=== PATIENT | female | born 1950 | race Caucasian/White ===

== ENCOUNTER → 2016-12-20 | Outpatient (CLI) | payer BC ==
[~2016-12-20] MED LIST: AMBI5TAB PO; CALC600T21 PO; CALC600T7 PO; ESTR62CR PV; FISH120012 PO; GABA-283 PO; GLUC15002 PO; LIPI1TAB2 PO; METF1000 PO; MOBI15TA PO; PERCOCET PO; PROT1TAB2 PO; ROBA500T PO; SUPECAP24 PO; VALI2TAB PO; VESI5TAB PO; VITA10006 PO; ZETI10TA2 PO; ZOLO50TA PO
[2016-12-20 12:55] LABS: ALBUMIN 3.9 GM/DL (3.2-5.2); ALBUMIN/GLOBULIN RATIO 1.34 (1.00-1.93); ALKALINE PHOSPHATASE 90 U/L (45-117); ALT/SGPT 36 U/L (12-78); ANION GAP 7 MEQ/L (8-16); AST/SGOT 24 U/L (15-37); BILIRUBIN,TOTAL 0.4 MG/DL (0.2-1.0); BLOOD UREA NITROGEN 19 MG/DL (7-18); CALCIUM LEVEL 9.2 MG/DL (8.8-10.2); CARBON DIOXIDE LEVEL 30 MEQ/L (21-32); CHLORIDE LEVEL 106 MEQ/L (98-107); CHOLESTEROL LEVEL 131 MG/DL (<200); GLOMERULAR FILTRATION RATE > 60.0 (>45); GLUCOSE, FASTING 122 MG/DL (80-110); POTASSIUM SERUM 4.5 MEQ/L (3.5-5.1); SODIUM LEVEL 143 MEQ/L (136-145); TOTAL PROTEIN 6.8 GM/DL (6.4-8.2); TRIGLYCERIDES LEVEL 95 MG/DL (<150)
== END ==
LOC: M WUC 08:32
DX: E11.9 Type 2 diabetes mellitus without complications (principal)

== ENCOUNTER → 2017-01-15 | Outpatient (CLI) | payer OTHER ==
--- NOTE | 2017-02-08 00:37 | ECWPNPC ---
PATIENT NAME: TAMI WHITMORE : 1950 GENDER: FEMALE VISIT DATE: 01/15/2017 DISCHARGE DATE: 01/15/17 1045 VISIT LOCKED DATE TIME: PHYSICIAN: JESSI FREEMAN RESOURCE: JESSI FREEMAN REASON FOR APPOINTMENT 1. BACK HISTORY OF PRESENT ILLNESS HISTORY OF PRESENT ILLNESS: PAIN THE PATIENT DESCRIBES THE PAIN... FALL RISK SCREENING: SCREENING :NO FALLS IN THE PAST YEAR TODAY'S VISIT: NOTES: FOLLOWUP FOR LOW BACK PAIN RATES PAIN TODAY 0/10. HAS BEEN HAVING DISCOMFORT IN BACK FROM COUGHING, BUT OVERALL HAS HAD GOOD CONTROL OF BACK PAIN. UNEVEN SURFACES STILL CAUSE LOW BACK PAIN WITH NO RADIATION. USES IBUPROFEN OR TYLENOL NEEDED AND REAT. . CURRENT MEDICATIONS TAKING ASCORBIC ACID 1000 MG TABLET 1 TABLET ORALLY ONCE A DAY TAKING SUPER B COMPLEX TABLET 1 TAB(S) ORALLY DAILY TAKING CALCIUM + D 600-200 MG-UNIT TABLET 1 TABLET WITH FOOD ORALLY DAILY TAKING GLUCOSAMINE 1500 MG CAPSULE 2 CAPSULE WITH A MEAL ORALLY ONCE A DAY TAKING METFORMIN HCL 1000 MG TABLET 1 TABLET WITH MEALS ORALLY DAILY TAKING VESICARE 5 MG TABLET 1 TABLET ORALLY ONCE A DAY TAKING ASPIR-81 81 MG TABLET DELAYED RELEASE 1 TABLET ORALLY ONCE A DAY TAKING LEVOTHYROXINE SODIUM 25 MCG TABLET 1 TABLET ON AN EMPTY STOMACH IN THE MORNING ORALLY ONCE A DAY TAKING ATORVASTATIN CALCIUM 40 MG TABLET 1 TABLET ORALLY ONCE A DAY TAKING ZETIA 10 MG TABLET 1 TABLET ORALLY ONCE A DAY TAKING PROTONIX 40 MG TABLET DELAYED RELEASE 1 TABLET ORALLY ONCE A DAY TAKING ZOLOFT 50 MG TABLET 1 TABLET ORALLY ONCE A DAY NOT-TAKING FEXOFENADINE HCL 180 MG TABLET 1 TABLET ORALLY ONCE A DAY NEEDED NOT-TAKING PERCOCET 5-325 MG TABLET 1 TABLET NEEDED ORALLY ONE TABLET ON ARRIVAL TO CLINIC FOR PROCEDURE MDD=1 NOT-TAKING VALIUM 5 MG TABLET 1 TABLET NEEDED ORALLY TAKE 1 TABLET ON ARRIVAL TO CLINIC FOR PROCEDURE MDD=1 NOT-TAKING CALCIUM CARBONATE 600 MG TABLET 1 TABLET ORALLY DAILY NOT-TAKING PREMARIN 0.625 MG TABLET 1 TABLET ORALLY DAILY FOR THREE WEEKS, 1 WEEK OFF NOT-TAKING VALIUM 2.5 MG TABLET 1 TABLET NEEDED ORALLY TID NOT-TAKING MELOXICAM 15 MG TABLET 1 TABLET ORALLY ONCE A DAY NOT-TAKING ROBAXIN 500 MG TABLET 1 TAB(S) ORALLY EVERY 4 HRS NOT-TAKING PERCOCET 5-325 MG TABLET 1 TABLET NEEDED ORALLY EVERY 6 HRS NOT-TAKING AMBIEN 5 MG TABLET 1 TABLET AT BEDTIME ORALLY ONCE A DAY MEDICATION LIST REVIEWED AND RECONCILED WITH THE PATIENT PAST MEDICAL HISTORY HYPOTHYROIDISM DIABETES SKIN CANCER FX LEFT WRIST WEARS CPAP AT NIGHT ALLERGIES NICKEL: RASH REVIEW OF SYSTEMS CONSTITUTIONAL: ANY CHANGE IN YOUR MEDICAL CONDITION? NO . CHILLS NO . FEVER NO . INFECTION: DO YOU HAVE NEW INFECTIONS? NO . DO YOU HAVE HISTORY OF MRSA? NO . MUSCULOSKELETAL: ANY NEW PATTERNS OF PAIN OR NUMBNESS? NO . GASTROENTEROLOGY: ANY NEW CHANGE IN BOWEL CONTROL? NO . GENITOURINARY: ANY NEW CHANGE IN BLADDER CONTROL? NO - INTERMITTANT STRESS INCONTINENCE . IS THERE A CHANCE YOU COULD BE ? NO . HEMATOLOGY/LYMPH: DO YOU TAKE ANY BLOOD THINNERS? (FOR EXAMPLE- COUMADIN, PLAVIX, AGGRENOX, PLATEL, PRADAXA, OR XARELTO) NO . WHEN WAS YOUR LAST DOSE? DATE: TIME: . NEUROLOGY: HAVE YOU FALLEN IN THE PAST 6 MONTHS? NO . ANY NEW EXTREMITY NUMBNESS OR WEAKNESS? NO . CARDIOLOGY: DO YOU HAVE A PACEMAKER OR DEFIBRILLATOR? NO . CHEST PAIN PATIENT DENIES. ECHOCARDIOGRAM DONE LAST YEAR WITH NO ISSUES . RESPIRATORY: HAVE YOU BEEN SICK IN THE PAST WEEK? YES, COLD AND COUGH . FEVER NO . FLU LIKE SYMPTOMS? NO . COUGH YES . INTEGUMENTARY: DO YOU HAVE ANY RASHES OR OPEN SORES? NO . ALLERGIC/IMMUNO: ARE YOU ALLERGIC TO SHELLFISH OR IV DYE? NO . ANY NEW ALLERGIES? NO . PSYCHIATRIC: DO YOU HAVE THOUGHTS OF HURTING YOURSELF OR SOMEONE ELSE? NO . ARE YOU ABUSED, NEGLECTED, OR IN AN UNSAFE ENVIRONMENT? NO . ENDOCRINOLOGY: ARE YOU DIABETIC? YES . OTHER: DO YOU NEED ANY PRESCRIPTIONS? NO . IF YES, PLEASE LIST: ____ . ANY NEW PROBLEMS WITH YOUR MEDICATIONS? NO . WHEN DID YOU LAST EAT? ____ . WHEN DID YOU LAST DRINK? ____ . WHAT DID YOU LAST DRINK? ____ . NAME OF PERSON DRIVING YOU HOME? ____ . DO YOU HAVE ANY OTHER QUESTIONS OR CONCERNS NO . REVIEWED BY: PROVIDER: JESSI BARGER . VITAL SIGNS WT 192.0 LBS, HT 66 IN, BMI 30.99 INDEX, BP 121/68 MM HG, HR 81 /MIN, RR 16 /MIN, TEMP 98.2 F, OXYGEN SAT % 96%, NA INITIALS AW 1012, REVIEWED BY: NL. EXAMINATION GENERAL EXAMINATION: LUNGS:CLEAR TO AUSCULTATION BILATERALLY. HEART:HEART RATE REGULAR, NO, CAROTID BRUIT. MUSCULOSKELETAL:RISES EASLY TO STANDING POSITION. MINIMAL TENDERNESS TO PALPATION OVER LUMBAR SPINOUS PROCESSES OR SACRAL ILIAC JOINTS. GAIT NONANTALGIC. ASSESSMENTS INTERVERTEBRAL DISC DISORDER WITH RADICULOPATHY OF LUMBAR REGION - M51.16 (PRIMARY) RADICULOPATHY OF LUMBAR REGION - M54.16 TREATMENT INTERVERTEBRAL DISC DISORDER WITH RADICULOPATHY OF LUMBAR REGION NOTES: CONTINUE WALKING, EXERCISES AND STRETCHES. PROCEDURES PN WORKMANS' COMP OPINION IN YOUR OPINION, WAS THE INCIDENT THAT THE PATIENT DESCRIBED THE COMPETENT MEDICAL CAUSE OF THIS INJURY/ILLNESS? YES ARE THE PATIENT'S COMPLAINTS CONSISTENT WITH HIS/HER HISTORY OF THE INJURY/ILLNESS? YES IS THE PATIENT'S HISTORY OF THE INJURY/ILLNESS CONSISTENT WITH YOUR OBJECTIVE FINDING? YES WHAT IS THE PERCENTAGE OF TEMPORARY IMPAIRMENT? MODERATE TO MARKED = 66.7% IS THE PATIENT WORKING? NO RETIRED DOCTOR ON SITE: CHIDI BYRD MD PROCEDURE CODES FA211 ESTABILISHED PATIENT [facility] CHARGE DISPOSITION & COMMUNICATION FOLLOW UP [address] KIRKPATRICK (REASON: WC BACK) ELECTRONICALLY SIGNED BY KHUSHBU AGUILAR ON 02/07/2017 AT 12:14 PM EDT DISCLAIMER : THIS IS A VISIT SUMMARY EXTRACTED FROM THE [employer] CHART. IT IS NOT A COPY OF THE [employer] PROGRESS NOTE. SARA
== END ==
LOC: M PAIN 10:00
PROVIDERS: ATTEND Nurse Practitioner Family
DX: G89.29 Other chronic pain (principal); M54.16 Radiculopathy, lumbar region; E11.9 Type 2 diabetes mellitus without complications; E03.9 Hypothyroidism, unspecified; Z85.828 Personal history of other malignant neoplasm of skin; Z79.899 Other long term (current) drug therapy; Z79.82 Long term (current) use of aspirin; Z79.84 Long term (current) use of oral hypoglycemic drugs; L23.0 Allergic contact dermatitis due to metals

== ENCOUNTER → 2017-03-30 | Outpatient (CLI) | payer BC ==
[~2017-03-30] MED LIST changes: -CALC600T21 PO; +CALC600T60 PO; -METF1000 PO; +METF10004 PO; -VESI5TAB PO; +VESI5TAB2 PO; -ZETI10TA2 PO; +ZETI10TA30 PO
--- NOTE | 2017-03-31 07:31 | REP ---
LEFT FOOT, FOUR VIEWS: HISTORY: Sprain. There is no acute fracture or dislocation. There is narrowing of the first metatarsophalangeal joint space. IMPRESSION: There is no acute fracture or dislocation. Signed by Parth Blackwood MD 03/31/2017 07:47 A
== END ==
LOC: M WUC 14:51
PROVIDERS: ATTEND Physician Assistant
DX: S93.602A Unspecified sprain of left foot, initial encounter (principal); X58.XXXA Exposure to other specified factors, initial encounter; Y92.89 Other specified places as the place of occurrence of the external cause; Y93.89 Activity, other specified; Y99.8 Other external cause status

== ENCOUNTER → 2017-04-03 | Outpatient (CLI) | payer BC, OTHER ==
--- NOTE | 2017-04-03 15:16 | REPMRS ---
Patient History The patient states she had a clinical breast exam in 03/02 Patient is postmenopausal, has history of other cervical cancer at age 29, and had first child at age 32. Family history of prostate cancer in father at age 50 or over and colorectal cancer in mother at age 50 or over. Digital Woman Screen Mammo: April 03, 2017 - Exam #: [id number] Bilateral CC and MLO view(s) were taken. Technologist: Nicole Grider, Technologist Prior study comparison: May 09, 2016, digital woman screen mammo performed at [facility]. 2013, digital bilateral screening mammo, performed at [facility]. FINDINGS: There are scattered fibroglandular densities. There has been no change in the appearance of the mammogram from the prior studies. There is a mild amount of scattered fibroglandular density which is fairly symmetric. There is no interval development of dominant mass, architectural distortion, or clustered microcalcification suggestive of malignancy. ASSESSMENT: BI-RADS/ACR category 1 mammogram. Negative. Recommendation Routine screening mammogram in 1 year (for women over age 40). This mammogram was interpreted with the aid of an FDA-approved computer-aided dectection system. Electronically Signed By: Dayo Christie MD 04/03/17 0453
== END ==
LOC: M WHC 14:24
PROVIDERS: ATTEND Obstetrics & Gynecology
DX: Z12.31 Encounter for screening mammogram for malignant neoplasm of breast (principal)

== ENCOUNTER → 2017-05-22 | Outpatient (CLI) | payer OTHER ==
--- NOTE | 2017-06-12 01:34 | ECWPNPC ---
PATIENT NAME: TAMI WHITMORE : 1950 GENDER: FEMALE VISIT DATE: 05/22/2017 DISCHARGE DATE: 05/22/17 1443 VISIT LOCKED DATE TIME: PHYSICIAN: JESSI FREEMAN RESOURCE: JESSI FREEMAN REASON FOR APPOINTMENT 1. W/C HISTORY OF PRESENT ILLNESS HISTORY OF PRESENT ILLNESS: PAIN THE PATIENT DESCRIBES THE PAIN... FALL RISK SCREENING: SCREENING :NO FALLS IN THE PAST YEAR TODAY'S VISIT: NOTES: FOLLOWUP FOR LOW BACK PAIN/ RATES PAIN TODAY 11/23. NOTES PAIN INTERMITTANT, ACHING, AND SORE. PAIN IS INTERMITTANT AND CAN BE SHARP. PAIN IS RESPONDING TO IBU. DOES HAVE TO MODIFY ACTIVITES DUE TO THE PAIN. . CURRENT MEDICATIONS TAKING ASCORBIC ACID 1000 MG TABLET 1 TABLET ORALLY ONCE A DAY TAKING SUPER B COMPLEX TABLET 1 TAB(S) ORALLY DAILY TAKING GLUCOSAMINE 1500 MG CAPSULE 2 CAPSULE WITH A MEAL ORALLY ONCE A DAY TAKING METFORMIN HCL 1000 MG TABLET 1 TABLET WITH MEALS ORALLY DAILY TAKING VESICARE 5 MG TABLET 1 TABLET ORALLY ONCE A DAY TAKING ASPIR-81 81 MG TABLET DELAYED RELEASE 1 TABLET ORALLY ONCE A DAY TAKING LEVOTHYROXINE SODIUM 25 MCG TABLET 1 TABLET ON AN EMPTY STOMACH IN THE MORNING ORALLY ONCE A DAY TAKING ATORVASTATIN CALCIUM 40 MG TABLET 1 TABLET ORALLY ONCE A DAY TAKING ZETIA 10 MG TABLET 1 TABLET ORALLY ONCE A DAY TAKING PROTONIX 40 MG TABLET DELAYED RELEASE 1 TABLET ORALLY ONCE A DAY TAKING ZOLOFT 50 MG TABLET 1 TABLET ORALLY ONCE A DAY NOT-TAKING CALCIUM + D 600-200 MG-UNIT TABLET 1 TABLET WITH FOOD ORALLY DAILY NOT-TAKING FEXOFENADINE HCL 180 MG TABLET 1 TABLET ORALLY ONCE A DAY NEEDED NOT-TAKING PERCOCET 5-325 MG TABLET 1 TABLET NEEDED ORALLY ONE TABLET ON ARRIVAL TO CLINIC FOR PROCEDURE MDD=1 NOT-TAKING VALIUM 5 MG TABLET 1 TABLET NEEDED ORALLY TAKE 1 TABLET ON ARRIVAL TO CLINIC FOR PROCEDURE MDD=1 NOT-TAKING CALCIUM CARBONATE 600 MG TABLET 1 TABLET ORALLY DAILY NOT-TAKING PREMARIN 0.625 MG TABLET 1 TABLET ORALLY DAILY FOR THREE WEEKS, 1 WEEK OFF NOT-TAKING VALIUM 2.5 MG TABLET 1 TABLET NEEDED ORALLY TID NOT-TAKING MELOXICAM 15 MG TABLET 1 TABLET ORALLY ONCE A DAY NOT-TAKING ROBAXIN 500 MG TABLET 1 TAB(S) ORALLY EVERY 4 HRS NOT-TAKING PERCOCET 5-325 MG TABLET 1 TABLET NEEDED ORALLY EVERY 6 HRS NOT-TAKING AMBIEN 5 MG TABLET 1 TABLET AT BEDTIME ORALLY ONCE A DAY MEDICATION LIST REVIEWED AND RECONCILED WITH THE PATIENT PAST MEDICAL HISTORY HYPOTHYROIDISM DIABETES SKIN CANCER FX LEFT WRIST WEARS CPAP AT NIGHT ALLERGIES NICKEL: RASH REVIEW OF SYSTEMS REVIEWED BY: PROVIDER: JESSI BARGER . CONSTITUTIONAL: ANY CHANGE IN YOUR MEDICAL CONDITION? NO . CHILLS NO . FEVER NO . INFECTION: DO YOU HAVE NEW INFECTIONS? NO . DO YOU HAVE HISTORY OF MRSA? NO . MUSCULOSKELETAL: ANY NEW PATTERNS OF PAIN OR NUMBNESS? NO . GASTROENTEROLOGY: ANY NEW CHANGE IN BOWEL CONTROL? NO . GENITOURINARY: ANY NEW CHANGE IN BLADDER CONTROL? NO . IS THERE A CHANCE YOU COULD BE ? NO . HEMATOLOGY/LYMPH: DO YOU TAKE ANY BLOOD THINNERS? (FOR EXAMPLE- COUMADIN, PLAVIX, AGGRENOX, PLATEL, PRADAXA, OR XARELTO) NO . WHEN WAS YOUR LAST DOSE? DATE: TIME: . NEUROLOGY: HAVE YOU FALLEN IN THE PAST 6 MONTHS? YES, TRIPPED 2 WEEKS AGO WHEN GETTING OFF [employer]/ ALREADY HEALED . ANY NEW EXTREMITY NUMBNESS OR WEAKNESS? NO . CARDIOLOGY: DO YOU HAVE A PACEMAKER OR DEFIBRILLATOR? NO . RESPIRATORY: HAVE YOU BEEN SICK IN THE PAST WEEK? NO . FEVER NO . FLU LIKE SYMPTOMS? NO . COUGH NO . INTEGUMENTARY: DO YOU HAVE ANY RASHES OR OPEN SORES? NO . ALLERGIC/IMMUNO: ARE YOU ALLERGIC TO SHELLFISH OR IV DYE? NO . ANY NEW ALLERGIES? NO . PSYCHIATRIC: DO YOU HAVE THOUGHTS OF HURTING YOURSELF OR SOMEONE ELSE? NO . ARE YOU ABUSED, NEGLECTED, OR IN AN UNSAFE ENVIRONMENT? NO . ENDOCRINOLOGY: ARE YOU DIABETIC? YES . OTHER: DO YOU NEED ANY PRESCRIPTIONS? NO . IF YES, PLEASE LIST: ____ . ANY NEW PROBLEMS WITH YOUR MEDICATIONS? NO . WHEN DID YOU LAST EAT? ____ . WHEN DID YOU LAST DRINK? ____ . WHAT DID YOU LAST DRINK? ____ . NAME OF PERSON DRIVING YOU HOME? ____ . DO YOU HAVE ANY OTHER QUESTIONS OR CONCERNS NO . VITAL SIGNS WT 189 LBS, HT 66 IN, BMI 30.50 INDEX, BP 125/70 MM HG, HR 69 /MIN, RR 16 /MIN, TEMP 97.6 F, OXYGEN SAT % 96, REVIEWED BY: NL. EXAMINATION GENERAL EXAMINATION: LUNGS:CLEAR TO AUSCULTATION BILATERALLY. HEART:HEART RATE REGULAR, NO, CAROTID BRUIT. MUSCULOSKELETAL:RISES EASLY TO STANDING POSITION. MINIMAL TENDERNESS TO PALPATION OVER LUMBAR SPINOUS PROCESSES OR SACRAL ILIAC JOINTS. GAIT NONANTALGIC. ASSESSMENTS INTERVERTEBRAL DISC DISORDER WITH RADICULOPATHY OF LUMBAR REGION - M51.16 (PRIMARY) RADICULOPATHY OF LUMBAR REGION - M54.16 TREATMENT INTERVERTEBRAL DISC DISORDER WITH RADICULOPATHY OF LUMBAR REGION NOTES: WALK EVERY DAY. DO EXERCISES TOLERATED. CALL IF PAIN INCREASES OR RADIATES TO LEG. PROCEDURES PN WORKMANS' COMP OPINION IN YOUR OPINION, WAS THE INCIDENT THAT THE PATIENT DESCRIBED THE COMPETENT MEDICAL CAUSE OF THIS INJURY/ILLNESS? YES ARE THE PATIENT'S COMPLAINTS CONSISTENT WITH HIS/HER HISTORY OF THE INJURY/ILLNESS? YES IS THE PATIENT'S HISTORY OF THE INJURY/ILLNESS CONSISTENT WITH YOUR OBJECTIVE FINDING? YES WHAT IS THE PERCENTAGE OF TEMPORARY IMPAIRMENT? MODERATE TO MARKED = 66.7% IS THE PATIENT WORKING? NO DOCTOR ON SITE: CHIDI BYRD MD PROCEDURE CODES FA211 ESTABILISHED PATIENT [facility] FACILITY CHARGE DISPOSITION & COMMUNICATION FOLLOW UP EARLY AUGUST (REASON: WC LOW BACK) ELECTRONICALLY SIGNED BY KHUSHBU AGUILAR ON 06/11/2017 AT 08:25 AM EDT DISCLAIMER : THIS IS A VISIT SUMMARY EXTRACTED FROM THE [employer] CHART. IT IS NOT A COPY OF THE [employer] PROGRESS NOTE. SARA
== END ==
LOC: M PAIN 13:45
PROVIDERS: ATTEND Nurse Practitioner Family
DX: M51.16 Intervertebral disc disorders with radiculopathy, lumbar region (principal); M54.5 Low back pain; E11.9 Type 2 diabetes mellitus without complications; E03.9 Hypothyroidism, unspecified; Z79.82 Long term (current) use of aspirin; Z79.84 Long term (current) use of oral hypoglycemic drugs; Z79.899 Other long term (current) drug therapy; Z91.09 Other allergy status, other than to drugs and biological substances

== ENCOUNTER → 2017-09-04 | Outpatient (CLI) | payer OTHER | LOC: M PAIN 09:45 | DX: M51.16 Intervertebral disc disorders with radiculopathy, lumbar region (principal); E03.9 Hypothyroidism, unspecified; E11.9 Type 2 diabetes mellitus without complications; L23.0 Allergic contact dermatitis due to metals; Z79.84 Long term (current) use of oral hypoglycemic drugs; Z79.82 Long term (current) use of aspirin; Z79.899 Other long term (current) drug therapy | CPT/HCPCS: G0463 ==

== ENCOUNTER → 2018-06-03 | Outpatient (CLI) | payer OTHER | LOC: M PAIN 15:15 | DX: M51.16 Intervertebral disc disorders with radiculopathy, lumbar region (principal); M51.17 Intervertebral disc disorders with radiculopathy, lumbosacral region; E03.9 Hypothyroidism, unspecified; E11.9 Type 2 diabetes mellitus without complications; Z85.828 Personal history of other malignant neoplasm of skin; Z79.82 Long term (current) use of aspirin; Z79.84 Long term (current) use of oral hypoglycemic drugs; Z79.899 Other long term (current) drug therapy; Z91.048 Other nonmedicinal substance allergy status | CPT/HCPCS: G0463 ==